=== PATIENT | male | born 1950 | race Caucasian/White ===

== ENCOUNTER → 2017-07-07 09:26 | Outpatient (CLI) | payer MEDICARE, OTHER, SELFPAY ==
--- NOTE | 2017-07-07 09:33 | US_ITS ---
PROCEDURES: ULTRASOUND AORTA REASON FOR EXAM: Male, 67 years old. Screening for abdominal aortic aneurysm. TECHNIQUE: Ultrasound evaluation of the aorta was performed with real-time and static altamirano-scale imaging. COMPARISON: None. FINDINGS: There is atherosclerotic plaque formation of the abdominal aorta. Aorta measures: Proximal 2.2 cm. Middle 1.7 cm. Distal 1.5 cm. Aorta measure transversely: Proximal 2.4 cm. Middle 1.8 cm. Distal 1.6 cm. Right iliac artery measures: 1 cm. Right iliac artery measure transversely: 1.2 cm. Left iliac artery measures: 1 cm. Left iliac artery measure transversely: 1.2 cm. There is no demonstrated aneurysm.. US/Aorta IMPRESSION: Mild atherosclerotic changes in the abdominal aorta. No evidence of abdominal aortic aneurysm. Electronically Signed: Louis Cheema MD at 8:31 EST Tel , Service support ,
== END ==
PROVIDERS: Family Provider Internal Medicine; PCP Internal Medicine; Visit Provider Internal Medicine
DX: Z13.6 Encounter for screening for cardiovascular disorders (principal)
CPT/HCPCS: 76775